=== PATIENT | female | born 1945 | race Caucasian/White ===

== ENCOUNTER 2023-09-08 12:22 | Inpatient (IN) | payer MEDICARE, OTHER, SELFPAY ==
[2023-09-08] VITALS (10 sets, daily range): BP systolic 111–130; BP diastolic 65–85; PULSE 72–85; RESP 18–20; TEMP 36.8–37.6; O2SAT 93–98; BMI 32.2
--- NOTE | 2023-09-08 12:37 | XRR_ITS ---
PROCEDURE INFORMATION: Exam: XR Chest Exam date and time: 09/08/2023 12:45 PM Age: 78 years old Clinical indication: Cough and dyspnea; Additional info: Weakness TECHNIQUE: Imaging protocol: Radiologic exam of the chest. Views: 1 view. COMPARISON: No relevant prior studies available. FINDINGS: Tubes, catheters and devices: Left-sided pacemaker noted. Loop recorder pattern density overlying left lower chest/upper abdomen noted medially. Lungs: Unremarkable. No consolidation. Pleural spaces: Unremarkable. No pleural effusion. No pneumothorax. Heart/Mediastinum: Cardiomegaly noted. Bones/joints: Unremarkable. XR/XR chest 1V portable [id number] IMPRESSION: No acute findings. Cardiomegaly noted.
--- NOTE | 2023-09-08 12:49 | W.ED.COVID ---
HPI - COVID General: Chief Complaint: COVID symptoms Stated Complaint: WEAKNESS; COVID + Time Seen by Provider: 09/08/23 12:35 Source: patient and EMS Mode of arrival: EMS Limitations: no limitations History of Present Illness: 78-year-old female states that she tested positive for COVID on the first she states that she has had cough congestion increasing shortness of breath especially today. States today she felt very weak and short of breath EMS states her pulse ox was in the 80s to have her on 2 L she does not wear oxygen at home no known fevers COVID 19 common symptoms: positive non-productive cough, dyspnea, fatigue and throat pain; negative fever(s), chills, body aches, headache(s), nausea, vomiting or diarrhea COVID 19 other sytmptoms: negative chest pain COVID Results: No Data to Display Review of Systems Const: Reports: fatigue and malaise; Denies: fever(s), chills or body aches ENMT: Reports: throat pain; Denies: dental pain Card: Denies: chest pain Resp: Reports: dyspnea and non-productive cough GI: Denies: abdominal pain, nausea, vomiting or diarrhea Musc: Denies: neck pain or back pain Skin/Breast: Denies: rash Neuro: Denies: headache(s) Physical Exam Const: COMMON NORMALS: patient oriented x3 GENERAL APPEARANCE: ill appearing HENMT: COMMON NORMALS: normocephalic and atraumatic HEAD & SCALP: normocephalic and atraumatic Eye: COMMON NORMALS: Equal, round and reactive pupils present and EOMs intact bilaterally PUPIL: Yes Equal, round and reactive pupils present Neck/C-Spine: COMMON NORMALS: full ROM and supple Chest: COMMONS NORMALS: normal inspection of the chest and normal palpation of entire chest wall Resp: COMMON NORMALS: normal respiratory effort, No retractions, No use of accessory muscles and clear to auscultation bilaterally AUSCULTATION: clear to auscultation bilaterally Cardio: COMMON NORMALS: regular rate, regular rhythm and No murmurs present (Cardio) RATE: regular rate RHYTHM: regular rhythm GI: COMMON NORMALS: Normal to inspection, nondistended, normoactive bowel sounds present, Soft to palpation, non-tender and no masses PALPATION: Yes Soft to palpation Extremity: COMMON NORMALS: normal to inspection and full ROM Neuro: COMMON NORMALS: patient oriented x3, moves all extremities and no focal motor deficits Psych: COMMON NORMALS: mental status grossly normal, Normal thought process present and cooperative THOUGHT PROCESS: Normal thought process present Skin: COMMON NORMALS: no rashes or lesions noted and no wounds GENERAL SKIN EXAM: no rashes or lesions noted Course Vital Signs: Vital signs: Vital Signs Temperature 99.6 F 09/08/23 12:32 Pulse Rate 85 09/08/23 13:30 Respiratory Rate 20 H 09/08/23 13:30 Blood Pressure 116/75 09/08/23 13:30 Pulse Oximetry 96 09/08/23 13:30 Oxygen Delivery Me thod Room Air 09/08/23 13:30 Oxygen Flow Rate 1 09/08/23 13:09 MDM - COVID Medical Decision Making Patient presents here with generalized weakness she is COVID-positive having some mild hypoxia as well. Spoke to the hospitalist will admit for observation. Medical Records I reviewed the patient's medical records. Lab Data I reviewed the patient's lab results. 09/08/23 13:10 09/08/23 13:10 Radiology Impressions Chest X-Ray 09/08/23 12:37 IMPRESSION: No acute findings. Cardiomegaly noted. Laboratory Results WBC 6.52 10^3/uL (3.29-11.43) 09/08/23 13:10 RBC 4.13 10^6/uL (3.85-5.65) 09/08/23 13:10 Hgb 11.40 g/dL (11.27-16.99) 09/08/23 13:10 Hct 33.2 % (36-47) L 09/08/23 13:10 MCV 80.4 fl (85-98) L 09/08/23 13:10 MCH 27.6 pg (27-33) 09/08/23 13:10 MCHC 34.3 g/dL (30-55) 09/08/23 13:10 RDW 13.7 % (12.1-15.1) 09/08/23 13:10 Plt Count 131 10^3/cmm (157-399) L 09/08/23 13:10 MPV 9.0 fL (7.4-10.4) 09/08/23 13:10 Neut % (Auto) 75.7 % 09/08/23 13:10 Lymph % (Auto) 12.7 % 09/08/23 13:10 [place] % (Auto) 11.2 % 09/08/23 13:10 Eos % (Auto) 0.2 % 09/08/23 13:10 Baso % (Auto) 0.0 % 09/08/23 13:10 Neut # (Auto) 4.94 10^3/uL (1.8-7.7) 09/08/23 13:10 Lymph # (Auto) 0.8 10^3/uL (0.8-4.8) 09/08/23 13:10 [place] # (Auto) 0.7 10^3/uL (0.2-0.9) 09/08/23 13:10 Eos # (Auto) 0.0 10^3/uL (0.0-0.8) 09/08/23 13:10 Baso # (Auto) 0.0 10^3/uL (0.0-0.1) 09/08/23 13:10 Nucleated RBC % (auto) 0 % 09/08/23 13:10 Nucleated RBCs # 0.0 /100WBC 09/08/23 13:10 Sodium 129 mmol/L (136-145) L 09/08/23 13:10 Potassium 3.3 mmol/L (3.5-5.1) L 09/08/23 13:10 Chloride 92 mmol/L (98-107) L 09/08/23 13:10 Carbon Dioxide 20 mmol/L (22-29) L 09/08/23 13:10 Anion Gap 20.3 (5-19) H 09/08/23 13:10 BUN 16 mg/dL (8-23) 09/08/23 13:10 Creatinine 1.1 mg/dL (0.5-0.9) H 09/08/23 13:10 GFR Calculation Not Reportable 09/08/23 13:10 Glucose 114 mg/dL (65-115) 09/08/23 13:10 Calculated Osmolality 270 mOsm/kg (285-295) L 09/08/23 13:10 Calcium 8.5 mg/dL (8.5-10.5) 09/08/23 13:10 Total Bilirubin 0.6 mg/dL (0.15-1.2) 09/08/23 13:10 AST 40 U/L (0-32) H 09/08/23 13:10 ALT 30 U/L (0-33) 09/08/23 13:10 Alkaline Phosphatase 77 U/L (35-105) 09/08/23 13:10 Total Protein 7.2 g/dL (6.6-8.7) 09/08/23 13:10 Albumin 4.1 g/dL (3.5-5.2) 09/08/23 13:10 Globulin 3.1 g/dL (1.3-4.6) 09/08/23 13:10 Urine Color Yellow (Yellow) 09/08/23 13:30 Urine Appearance Clear (CLEAR) 09/08/23 13:30 Urine pH 5 (5-7) 09/08/23 13:30 Ur Specific [place] 1.015 (1.005-1.030) 09/08/23 13:30 Urine Protein 1+ (Negative) H 09/08/23 13:30 Urine Glucose (UA) Norm (Normal) 09/08/23 13:30 Urine Ketones 1+ (Negative) H 09/08/23 13:30 Urine Blood 2+ (Negative) H 09/08/23 13:30 Urine Nitrate Negative (Negative) 09/08/23 13:30 Urine Bilirubin Neg (Negative) 09/08/23 13:30 Urine Urobilinogen Norm mg/dL (Negative) 09/08/23 13:30 Ur Leukocyte Esterase Negative (Negative) 09/08/23 13:30 Urine RBC 0-4 /hpf (0-2) H 09/08/23 13:30 Urine WBC None /hpf (0-5) 09/08/23 13:30 Ur Squamous Epith Cells None /hpf (0-5) 09/08/23 13:30 Amorphous Sediment Not Reportable 09/08/23 13:30 Urine Bacteria Trace /hpf (NONE) 09/08/23 13:30 No Data to Display All radiology interpretation(s) finalized by discharge Discharge Plan Discharge Patient Disposition: Admitted As Inpatient Clinical Impression: COVID-19, Generalized weakness Condition: Stable Referrals: Nikolai Garcia MD [Family Provider] - Coding Level of Care Code ED Senior Marketing Specialist for [facility] Janice
[2023-09-08] MEDS: dexamethasone 10 mg/mL INJ IVP (13:04)
[2023-09-08 13:16] LABS: Eosinophils % 0.2 %; Hematocrit 33.2 % (36-47); Lymphocytes # 0.8 10^3/uL (0.8-4.8); Lymphocytes % 12.7 %; Mean Corpuscular HGB Conc 34.3 g/dL (30-55); Mean Corpuscular Hemoglobin 27.6 pg (27-33); Mean Corpuscular Volume 80.4 fl (85-98); Monocytes # 0.7 10^3/uL (0.2-0.9); Monocytes % 11.2 %; Neutrophils # 4.94 10^3/uL (1.8-7.7); Neutrophils % 75.7 %; Nucleated Red Blood Cells % 0 %; Platelet Count 131 10^3/cmm (157-399); Red Blood Count 4.13 10^6/uL (3.85-5.65); Red Cell Distribution Width 13.7 % (12.1-15.1); White Blood Count 6.52 10^3/uL (3.29-11.43)
[2023-09-08 13:37] LABS: Alanine Aminotransferase 30 U/L (0-33); Albumin Level 4.1 g/dL (3.5-5.2); Alkaline Phosphatase 77 U/L (35-105); Anion Gap 20.3 (5-19); Aspartate Amino Transferase 40 U/L (0-32); Blood Urea Nitrogen 16 mg/dL (8-23); Calcium 8.5 mg/dL (8.5-10.5); Carbon Dioxide 20 mmol/L (22-29); Chloride 92 mmol/L (98-107); Globulin 3.1 g/dL (1.3-4.6); Glucose 114 mg/dL (65-115); Osmolality Calculated 270 mOsm/kg (285-295); Potassium 3.3 mmol/L (3.5-5.1); Sodium 129 mmol/L (136-145); Total Bilirubin 0.6 mg/dL (0.15-1.2); Total Protein 7.2 g/dL (6.6-8.7)
[2023-09-08 13:38] LABS: Creatinine Clr Calc Pharmacy 43.5848
[2023-09-08] MEDS: acetaminophen 500 mg Tablet 1000 MG PO (13:44)
[2023-09-08 13:58] LABS: Protein Urine 1+ (Negative); Specific Gravity, Urine 1.015 (1.005-1.030); Urine Appearance Clear (CLEAR); Urine Color Yellow (Yellow); pH Urine 5 (5-7)
[2023-09-08 13:59] LABS: Add Urine Culture? No; Add Urine Microscopic? YES; Bacteria Urine TRACE /hpf; Bilirubin Urine Neg (Negative); Blood Urine 2+ (Negative); Glucose Urine UA Norm (Normal); Ketones Urine 1+ (Negative); Leukocyte Esterase Urine Negative (Negative); Nitrate Urine Negative (Negative); RBC Urine 0-4 /hpf (0-2); Urobilinogen Urine Norm (Negative)
--- NOTE | 2023-09-08 14:08 | P.HP_ITS ---
Providers/Chief Complaint 2 Chief Complaint: WEAKNESS; COVID + History of Present Illness Carol Perry is a 78 year old female who carries history of cardiomyopathy status post pacemaker AICD, presented with chief complaint of worsening of shortness of breath diarrhea and lethargy. Patient tested positive for COVID on first of this month, her daughter is sick with COVID-19. Her symptoms started roughly 3 days ago, she has not noticed any fever. She is endorsing diarrhea. No active chest pain. She has noted sore throat and change of her voice. Review of Systems 2 Const: Reports: chills, fatigue and malaise Eyes: Denies: change in vision ENMT: Denies: throat pain Card: Denies: chest pain Resp: Reports: dyspnea GI: Reports: nausea and diarrhea : Denies: flank pain Musc: Denies: neck pain Medications/Allergies Home Medications Medication Instructions Recorded Confirmed Last Taken Type amlodipine 10 mg tablet 10 mg PO DAILY 09/08/23 09/08/23 Unknown History apixaban 5 mg tablet (Eliquis) 5 mg PO BID 09/08/23 09/08/23 Unknown History cholecalciferol (vitamin D3) 125 125 mcg PO QAM 09/08/23 09/08/23 Unknown History mcg (5,000 unit) tablet (Vitamin D3) coenzyme Q10 100 mg capsule 100 mg PO QAM 09/08/23 09/08/23 Unknown History (CoQ-10) duloxetine 60 mg capsule,delayed 60 mg PO QAM 09/08/23 09/08/23 Unknown History release (Cymbalta) esomeprazole magnesium 40 mg 40 mg PO QAM 09/08/23 09/08/23 Unknown History capsule,delayed release (Nexium) furosemide 20 mg tablet (Lasix) 20 mg PO QAM 09/08/23 09/08/23 Unknown History linaclotide 72 mcg capsule 72 mcg PO QAM 09/08/23 09/08/23 Unknown History losartan 50 mg tablet 50 mg PO BID 09/08/23 09/08/23 Unknown History nirmatrelvir 300 mg (150 mg See Rx Instructions .Route .COMPLEX 09/08/23 09/08/23 Unknown History x2)-ritonavir 100 mg tablet,dose pack (Paxlovid) omega-3 acid ethyl esters 1 gram 2 cap PO BID 09/08/23 09/08/23 Unknown History capsule potassium chloride 10 mEq 10 meq PO QAM 09/08/23 09/08/23 Unknown History tablet,extended release ropinirole 0.5 mg tablet 0.5 mg PO QPM 09/08/23 09/08/23 Unknown History rosuvastatin 20 mg tablet (Crestor) 20 mg PO QPM 09/08/23 09/08/23 Unknown History sotalol 80 mg tablet 80 mg PO BID 09/08/23 09/08/23 Unknown History vitamin B complex 1 tab PO QAM 09/08/23 09/08/23 Unknown History Allergies Allergy/AdvReac Type Severity Reaction Status Date / Time No Known Allergies Allergy Verified 09/08/23 12:39 PFSH Acute 2 PFSH: Medical History Pacemaker Cardiomyopathy Surgical History Presence of biventricular AICD Vitals/I&O/Wt Last Vital Signs Temp 99.6 F 09/08/23 12:32 Pulse 85 09/08/23 13:30 Resp 20 H 09/08/23 13:30 BP 116/75 09/08/23 13:30 Pulse Ox 94 09/08/23 14:00 O2 Del Method Room Air 09/08/23 14:00 O2 Flow Rate 1 09/08/23 13:09 Weight last 48 hrs Weight 82.554 kg Physical Exam 2 Narrative: Pleasant cooperative Currently on room air Hoarseness of voice GCS 15 Bilateral breath sounds with mild rhonchi Abdomen soft No severe signs of fluid overload Pleasant cooperative Nonfocal neuroexam Appears stated age Pleasant cooperative Data 09/08/23 13:10 09/08/23 13:10 A&P Assessment and plan (1) Dehydration: (2) ANDREW (acute kidney injury): (3) Hyponatremia: (4) COVID-19: (5) Generalized weakness: (6) Hypokalemia: Plan Generalized weakness lethargy and fatigue related to COVID-19 Judicious use of fluids Patient carries history of cardiomyopathy status post AICD and pacemaker I will continue diuretics with potassium supplementation Hold off on IV fluids Patient not requiring oxygen However I will give her remdesivir and Decadron Will give her antibiotics as well to prevent post viral bacterial infection Hypokalemia: Replenish potassium Check mag level TSH B12 History of A-fib continue Eliquis along sotalol Full code Cardiac diet Attestations 2 Medical Necessity Statement*: More than 2 midnights anticipated Diagnoses Dehydration E86.0 ANDREW (acute kidney injury) N17.9 Hyponatremia E87.1 COVID-19 U07.1 Generalized weakness R53.1 Hypokalemia E87.6
--- NOTE | 2023-09-08 14:27 | PC.PHAR ---
pts daughter states she takes care of the pts medications-tia [phone] pts daughter states she sent the pts medications with the pt states they are in 3 bags states thats all the medications the pt takes-medications entered are from the pts medication bottles that were brought in -
[2023-09-08 14:32] LABS: D Dimer 0.58 ug/mLFEU (0-0.59)
[2023-09-08 14:33] LABS: NT Pro B Type Natriuretic Pept 2112 pg/mL (0-450)
[2023-09-08 14:53] LABS: Procalcitonin 0.09 ng/mL (0-0.5)
[2023-09-08 17:46] LABS: Glucose Point of Care 155 mg/dL (70-110)
[2023-09-08] MEDS: apixaban 5 mg Tablet PO (17:48)
[2023-09-08] MEDS: enoxaparin 40 mg/0.4 mL Syringe SUBCUT (17:48)
[2023-09-08] MEDS: sotalol 80 mg Tablet PO (17:48)
[2023-09-08] MEDS: ropinirole 0.25 mg Tablet 0.5 MG PO (17:48)
[2023-09-08] MEDS: sodium chloride 0.9% 1,000 ML 75 ML IV (17:49)
[2023-09-08 18:49] LABS: Thyroid Stimulating Hormone 0.82 uIU/mL (0.27-4.20); Vitamin B12 1399 pg/mL (232-1245)
[2023-09-08 19:51] LABS: Estmated Average Glucose 114; Hemoglobin A1C 5.6 % (4.0-6.0)
[2023-09-08 20:43] LABS: Glucose Point of Care 334 mg/dL (70-110)
[2023-09-09] VITALS (7 sets, daily range): BP systolic 103–118; BP diastolic 61–71; PULSE 68–81; RESP 16–18; TEMP 36.5–36.8; O2SAT 93–98
[2023-09-09 06:10] LABS: Hematocrit 32.6 % (36-47); Lymphocytes # 0.7 10^3/uL (0.8-4.8); Lymphocytes % 13.9 %; Mean Corpuscular HGB Conc 33.7 g/dL (30-55); Mean Corpuscular Hemoglobin 27.2 pg (27-33); Mean Corpuscular Volume 80.5 fl (85-98); Monocytes # 0.4 10^3/uL (0.2-0.9); Monocytes % 8.6 %; Neutrophils # 3.95 10^3/uL (1.8-7.7); Neutrophils % 77.3 %; Nucleated Red Blood Cells % 0 %; Platelet Count 137 10^3/cmm (157-399); Red Blood Count 4.05 10^6/uL (3.85-5.65); Red Cell Distribution Width 13.5 % (12.1-15.1); White Blood Count 5.11 10^3/uL (3.29-11.43)
[2023-09-09] MEDS: duloxetine 60 mg Capsule PO (06:14)
[2023-09-09] MEDS: FUROsemide 20 mg Tablet PO (06:14)
[2023-09-09 06:20] LABS: Glucose Point of Care 185 mg/dL (70-110)
[2023-09-09 06:35] LABS: Anion Gap 14.1 (5-19); Blood Urea Nitrogen 17 mg/dL (8-23); C Reactive Protein 60.3 mg/L (0.0-4.9); Calcium 8.2 mg/dL (8.5-10.5); Carbon Dioxide 20 mmol/L (22-29); Chloride 96 mmol/L (98-107); Creatinine Clr Calc Pharmacy 59.4569; Glucose 186 mg/dL (65-115); Magnesium 1.6 mg/dL (1.7-2.3); Osmolality Calculated 270 mOsm/kg (285-295); Phosphorus 2.2 mg/dL (2.5-4.5); Potassium 3.1 mmol/L (3.5-5.1); Sodium 127 mmol/L (136-145)
[2023-09-09] MEDS: cefTRIAXone 1,000 MG in sodium chloride 0.9% (plus) 50 ML 100 MG IV (10:22)
[2023-09-09] MEDS: sotalol 80 mg Tablet PO ×2 (10:23→17:32)
[2023-09-09] MEDS: potassium chloride ER 20 mEq Tablet 40 MEQ PO (10:23)
[2023-09-09] MEDS: pantoprazole DR 40 mg Tablet PO (10:23)
[2023-09-09] MEDS: dexamethasone 4 mg Tablet 6 MG PO (10:23)
[2023-09-09] MEDS: apixaban 5 mg Tablet PO ×2 (10:23→17:32)
[2023-09-09] MEDS: insulin lispro 100 unit/1 mL SUBCUT ×3 (10:24→17:32)
[2023-09-09 11:21] LABS: Glucose Point of Care 205 mg/dL (70-110)
[2023-09-09] MEDS: magnesium sulfate premix 1 GM/100 ML PIGGYBACK IV (11:22)
--- NOTE | 2023-09-09 12:06 | P.PN_ITS ---
Subjective 2 Subjective: Sodium 127 Potassium 3.1 Phosphorus is low as well 2.2 Magnesium 1.6 I have replenished electrolytes via IV today Patient is afebrile not requiring oxygen Still endorsing feeling fatigued and lethargic Endorsing muscle cramps Calcium is 8.2, albumin is normal Normal B12 Vitals/I&O/Wt Last Vital Signs Temp 98.3 F 09/09/23 11:27 Pulse 72 09/09/23 11:27 Resp 16 09/09/23 11:27 BP 117/61 09/09/23 11:27 Pulse Ox 95 09/09/23 11:27 O2 Del Method Room Air 09/09/23 11:27 O2 Flow Rate 1 09/08/23 13:09 09/08/23 09/09/23 09/09/23 22:59 06:59 14:59 Intake Total 240 / 240 1120 / 1360 390 / 390 Output Total 400 / 400 Balance 240 / 240 720 / 960 390 / 390 Weight last 48 hrs Weight 81.284 kg Weight 82.554 kg Weight 82.554 kg Physical Exam 2 Narrative: Awake and alert Dehydrated GCS 15 Pleasant cooperative Muscle cramps Nonfocal neuroexam Currently doing well on room air S1, S2 Data 09/09/23 05:46 09/09/23 05:46 Micro: Microbiology 09/08/23 15:36 Blood Culture - Preliminary Blood SPECIMEN COLLECTED 09/08/23 15:36 Blood Culture - Preliminary Blood SPECIMEN COLLECTED A&P Assessment and plan (1) Hyponatremia: (2) ANDREW (acute kidney injury): (3) Dehydration: (4) Hypokalemia: (5) COVID-19: (6) Generalized weakness: (7) Hypophosphatemia: (8) Hypomagnesemia: Plan Severe electrolyte imbalance Replenish potassium phosphorus magnesium with IV Mild COVID Not requiring oxygen, afebrile, will give her Decadron only History of congestive heart failure without significant exacerbation Clinical signs of dehydration IV fluids given yesterday Hold off on Lasix Not requiring oxygen Hopefully will be able to discharge her by tomorrow She is getting Eliquis which is her home medication Continue ceftriaxone empirical coverage A-fib without RVR Disposition: Home most likely by tomorrow Attestations 2 Medical Necessity Statement*: Plan to discharge her tomorrow Diagnoses Hyponatremia E87.1 ANDREW (acute kidney injury) N17.9 Dehydration E86.0 Hypokalemia E87.6 COVID-19 U07.1 Generalized weakness R53.1 Hypophosphatemia E83.39 Hypomagnesemia E83.42
[2023-09-09] MEDS: acetaminophen 500 mg Tablet PO (13:03)
[2023-09-09] MEDS: potassium phosphate (mEq K) 40 MEQ in sodium chloride 0.9% (100 ml) 100 ML 27.2699999999999996 MEQ IV (13:04)
[2023-09-09 16:47] LABS: Glucose Point of Care 199 mg/dL (70-110)
[2023-09-09] MEDS: ropinirole 0.25 mg Tablet 0.5 MG PO (17:32)
[2023-09-09] MEDS: enoxaparin 40 mg/0.4 mL Syringe SUBCUT (17:32)
[2023-09-09 20:59] LABS: Glucose Point of Care 180 mg/dL (70-110)
[2023-09-10 00:36] VITALS: BP 104/61; PULSE 78; RESP 18; TEMP 36.6; O2SAT 95
[2023-09-10 04:08] VITALS: BP 117/68; PULSE 73; RESP 18; TEMP 36.3; O2SAT 98
[2023-09-10 05:16] LABS: Basophils % 0.1 %; Hematocrit 32.5 % (36-47); Lymphocytes # 0.8 10^3/uL (0.8-4.8); Lymphocytes % 7.5 %; Mean Corpuscular HGB Conc 33.5 g/dL (30-55); Mean Corpuscular Hemoglobin 27.3 pg (27-33); Mean Corpuscular Volume 81.3 fl (85-98); Mean Platelet Volume 9.1 fL (7.4-10.4); Monocytes # 0.4 10^3/uL (0.2-0.9); Monocytes % 3.7 %; Neutrophils # 9.74 10^3/uL (1.8-7.7); Neutrophils % 88.2 %; Nucleated Red Blood Cells % 0 %; Platelet Count 151 10^3/cmm (157-399); White Blood Count 11.04 10^3/uL (3.29-11.43)
[2023-09-10] MEDS: duloxetine 60 mg Capsule PO (05:34)
[2023-09-10 05:45] LABS: Anion Gap 19.4 (5-19); Blood Urea Nitrogen 21 mg/dL (8-23); Calcium 8.4 mg/dL (8.5-10.5); Carbon Dioxide 19 mmol/L (22-29); Chloride 99 mmol/L (98-107); Creatinine Clr Calc Pharmacy 52.8505; Glucose 172 mg/dL (65-115); Magnesium 1.9 mg/dL (1.7-2.3); Osmolality Calculated 285 mOsm/kg (285-295); Phosphorus 3.4 mg/dL (2.5-4.5); Potassium 3.4 mmol/L (3.5-5.1); Sodium 134 mmol/L (136-145)
--- NOTE | 2023-09-10 06:00 | USCV_ITS ---
Carol Perry Age: 78 Gender: F : 1945 Exam Date: 09/10/2023 01:52 Ordering Phys: Joey Lopez MD Technologist: HAYES Exam Location: [facility] [place] Indication: COVID. No history of cardiac intervention per patient. BP: 108 / 63 HR: 71 Rhythm: Atrial fibrillation Technical Quality: Adequate MEASUREMENTS (Male / Female) Normal Values 2D ECHO LV Diastolic Diameter PLAX 4.7 cm 4.2 - 5.9 / 3.9 - 5.3 cm IVS Diastolic Thickness 1.1 cm 0.6 - 1.0 / 0.6 - 0.9 cm IVS Systolic Thickness 2.0 cm LVPW Diastolic Thickness 1.4 cm 0.6 - 1.0 / 0.6 - 0.9 cm LVPW Systolic Thickness 2.1 cm LVOT Diameter 1.4 cm LV Ejection Fraction 2D Teich 73.5 % LV Ejection Fraction MOD 2C 61.8 % LV Ejection Fraction 2C AL 0.0 % LA Diameter 4.9 cm Aorta at Sinotubular Diameter 2.4 cm IVC Diameter 2.0 cm M-MODE LA Ao Ratio MM 2.0 AV Cusp Separation MM 1.4 cm DOPPLER AV Peak Velocity 127.0 cm/s LVOT Peak Velocity 94.0 cm/s AV Area Cont Eq vti 1.3 cm squared AV Area Cont Eq pk 1.2 cm squared MV Peak Velocity 138.5 cm/s MV Area PHT 3.8 cm squared Mitral E to A Ratio 0.0 TV Peak Velocity 257.7 cm/s TR Peak Velocity 262.0 cm/s TR Peak Gradient 27.5 mmHg TV Peak E Velocity 71.0 cm/s Right Atrial Pressure 10.0 mmHg Pulmonary Artery Systolic Pressu 37.5 mmHg PV Peak Velocity 82.0 cm/s FINDINGS Left Ventricle Normal left ventricular size and systolic function, EF 62%no regional wall motion abnormalities. Right Ventricle The right ventricle is normal in size and function. Right Atrium Mildly increased right atrial size. Left Atrium Moderately increased left atrial size. Mitral Valve Mild mitral annular calcification. Moderate mitral valve regurgitation. Aortic Valve No gross abnormalities noted Tricuspid Valve Moderate tricuspid valve regurgitation. Estimated pulmonary artery peak systolic pressure 37 mmHg Pulmonic Valve Trace pulmonary valve regurgitation. Pericardium No pericardial effusion. Aorta Normal aortic annulus size. IVC The inferior vena cava appears normal. CONCLUSIONS Normal left ventricular size and systolic function, EF 62%no regional wall motion abnormalities. 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 Mild mitral annular calcification. Moderate mitral valve regurgitation. Moderate tricuspid valve regurgitation. Estimated pulmonary artery peak systolic pressure 37 mmHg. Trace pulmonary valve regurgitation. No similar previous studies are available for comparison Dr Raghu Bentley MD [facility] (Electronically Signed) Final Date: 10 September 2023 13:29 S
[2023-09-10 06:22] LABS: Glucose Point of Care 184 mg/dL (70-110)
[2023-09-10 08:00] VITALS: BP 98/60; PULSE 88; RESP 16; TEMP 36.7; O2SAT 97
--- NOTE | 2023-09-10 10:44 | PM.DCS ---
Discharge Providers Date of Admission: 09/08/23 14:08 Date of Discharge: September 10, 2023 Attending Provider at Admission: Joey Lopez MD Attending Provider at Discharge: Joey Lopez MD Diagnoses at Discharge Discharge Diagnosis (1) Hyponatremia: Status: Acute (2) ANDREW (acute kidney injury): Status: Acute (3) Dehydration: Status: Acute (4) Hypokalemia: Status: Acute (5) COVID-19: Status: Acute (6) Generalized weakness: Status: Acute (7) Hypophosphatemia: Status: Acute (8) Hypomagnesemia: Status: Acute Reason for Visit Reason for Visit: WEAKNESS; COVID + Hospital Course Hospital Course 78-year female who was admitted for management evaluation of severe electrolyte imbalance, generalized weakness and fatigue she was not able to get up walk around on her own, she remained afebrile, did not require oxygen despite testing positive for COVID, her diarrhea improved during hospitalization, she was given gentle fluid hydration otherwise she was given Lasix for her congestive heart failure symptoms, she may resume her Eliquis and sotalol at the time of discharge, she did not qualify for oxygen, Physical Exam Narrative: GCS 15 nonfocal neuroexam Awake and alert Currently on room air S1, S2 variable Euvolemic Diarrhea stop Discharge Data Studies Completed and Pending Completed Studies During Hospitalization Category Date Time Status XR chest 1V portable [id number] Stat Exams 09/08/23 12:37 Completed Pending at discharge Category Date Time Status Blood Culture Stat Lab 09/08/23 15:36 Results CV. echo complete* [id number] Routine Ultrasound 09/10/23 06:00 Taken Radiology Impressions Chest X-Ray 09/08/23 12:37 IMPRESSION: No acute findings. Cardiomegaly noted. Laboratory Results WBC 11.04 10^3/uL (3.29-11.43) 09/10/23 04:40 RBC 4.00 10^6/uL (3.85-5.65) 09/10/23 04:40 Hgb 10.90 g/dL (11.27-16.99) L 09/10/23 04:40 Hct 32.5 % (36-47) L 09/10/23 04:40 MCV 81.3 fl (85-98) L 09/10/23 04:40 MCH 27.3 pg (27-33) 09/10/23 04:40 MCHC 33.5 g/dL (30-55) 09/10/23 04:40 RDW 14.0 % (12.1-15.1) 09/10/23 04:40 Plt Count 151 10^3/cmm (157-399) L 09/10/23 04:40 MPV 9.1 fL (7.4-10.4) 09/10/23 04:40 Neut % (Auto) 88.2 % 09/10/23 04:40 Lymph % (Auto) 7.5 % 09/10/23 04:40 [place] % (Auto) 3.7 % 09/10/23 04:40 Eos % (Auto) 0.0 % 09/10/23 04:40 Baso % (Auto) 0.1 % 09/10/23 04:40 Neut # (Auto) 9.74 10^3/uL (1.8-7.7) H 09/10/23 04:40 Lymph # (Auto) 0.8 10^3/uL (0.8-4.8) 09/10/23 04:40 [place] # (Auto) 0.4 10^3/uL (0.2-0.9) 09/10/23 04:40 Eos # (Auto) 0.0 10^3/uL (0.0-0.8) 09/10/23 04:40 Baso # (Auto) 0.0 10^3/uL (0.0-0.1) 09/10/23 04:40 Nucleated RBC % (auto) 0 % 09/10/23 04:40 Nucleated RBCs # 0.0 /100WBC 09/10/23 04:40 D-Dimer 0.58 ug/mLFEU (0-0.59) 09/08/23 13:10 Sodium 134 mmol/L (136-145) L 09/10/23 04:40 Potassium 3.4 mmol/L (3.5-5.1) L 09/10/23 04:40 Chloride 99 mmol/L (98-107) 09/10/23 04:40 Carbon Dioxide 19 mmol/L (22-29) L 09/10/23 04:40 Anion Gap 19.4 (5-19) H 09/10/23 04:40 BUN 21 mg/dL (8-23) 09/10/23 04:40 Creatinine 0.9 mg/dL (0.5-0.9) 09/10/23 04:40 GFR Calculation Not Reportable 09/10/23 04:40 Glucose 172 mg/dL (65-115) H 09/10/23 04:40 POC Glucose 184 mg/dL (70-110) H 09/10/23 06:19 Estimat Average Glucose 114 09/08/23 13:10 Hemoglobin A1c 5.6 % (4.0-6.0) 09/08/23 13:10 Calculated Osmolality 285 mOsm/kg (285-295) 09/10/23 04:40 Calcium 8.4 mg/dL (8.5-10.5) L 09/10/23 04:40 Phosphorus 3.4 mg/dL (2.5-4.5) D 09/10/23 04:40 Magnesium 1.9 mg/dL (1.7-2.3) 09/10/23 04:40 Total Bilirubin 0.6 mg/dL (0.15-1.2) 09/08/23 13:10 AST 40 U/L (0-32) H 09/08/23 13:10 ALT 30 U/L (0-33) 09/08/23 13:10 Alkaline Phosphatase 77 U/L (35-105) 09/08/23 13:10 C-Reactive Protein 60.3 mg/L (0.0-4.9) H 09/09/23 05:46 NT-Pro-B Natriuret Pep 2112 pg/mL (0-450) H 09/08/23 13:10 Total Protein 7.2 g/dL (6.6-8.7) 09/08/23 13:10 Albumin 4.1 g/dL (3.5-5.2) 09/08/23 13:10 Globulin 3.1 g/dL (1.3-4.6) 09/08/23 13:10 Vitamin B12 1399 pg/mL (232-1245) H 09/08/23 13:10 Procalcitonin 0.09 ng/mL (0-0.5) 09/08/23 13:10 TSH 0.82 uIU/mL (0.27-4.20) 09/08/23 13:10 Urine Color Yellow (Yellow) 09/08/23 13:30 Urine Appearance Clear (CLEAR) 09/08/23 13:30 Urine pH 5 (5-7) 09/08/23 13:30 Ur Specific [place] 1.015 (1.005-1.030) 09/08/23 13:30 Urine Protein 1+ (Negative) H 09/08/23 13:30 Urine Glucose (UA) Norm (Normal) 09/08/23 13:30 Urine Ketones 1+ (Negative) H 09/08/23 13:30 Urine Blood 2+ (Negative) H 09/08/23 13:30 Urine Nitrate Negative (Negative) 09/08/23 13:30 Urine Bilirubin Neg (Negative) 09/08/23 13:30 Urine Urobilinogen Norm mg/dL (Negative) 09/08/23 13:30 Ur Leukocyte Esterase Negative (Negative) 09/08/23 13:30 Urine RBC 0-4 /hpf (0-2) H 09/08/23 13:30 Urine WBC None /hpf (0-5) 09/08/23 13:30 Ur Squamous Epith Cells None /hpf (0-5) 09/08/23 13:30 Amorphous Sediment Not Reportable 09/08/23 13:30 Urine Bacteria Trace /hpf (NONE) 09/08/23 13:30 Vitals Last Vital Signs Temp 98.0 F 09/10/23 08:00 Pulse 88 09/10/23 08:00 Resp 16 09/10/23 08:00 BP 98/60 09/10/23 08:00 Pulse Ox 97 09/10/23 08:00 O2 Del Method Room Air 09/10/23 08:00 O2 Flow Rate 1 09/08/23 13:09 Discharge Plan Discharge Patient Disposition: Home Condition: Stable Prescriptions: New magnesium 200 mg tablet 200 mg PO DAILY Qty: 10 0RF Continued losartan 50 mg Tablet 50 mg PO BID sotalol 80 mg Tablet 80 mg PO BID potassium chloride 10 mEq Tablet Extended Release 10 meq PO QAM Nexium 40 mg Capsule,Delayed Release(Dr/Ec) 40 mg PO QAM ropinirole 0.5 mg Tablet 0.5 mg PO QPM Lasix 20 mg Tablet 20 mg PO QAM CoQ-10 100 mg Capsule 100 mg PO QAM Crestor 20 mg Tablet 20 mg PO QPM Cymbalta 60 mg Capsule,Delayed Release(Dr/Ec) 60 mg PO QAM Vitamin D3 125 mcg (5,000 unit) Tablet 125 mcg PO QAM Eliquis 5 mg tablet 5 mg PO BID Held linaclotide 72 mcg Capsule 72 mcg PO QAM Hold Instructions: Resume on 10/01/23. Discontinued amlodipine 10 mg Tablet 10 mg PO DAILY Super B Complex Tablet 1 tab PO QAM omega-3 acid ethyl esters 1 gram Capsule 2 cap PO BID Paxlovid 300 mg (150 mg x 2)-100 mg Tablets,Dose Pack See Rx Instructions .ROUTE .COMPLEX Rx Instructions: as directed (started 09/06/23) Discharge Orders: Discharge Order (Routine); Ordered 09/10/23 Ordered By: Joey Lopez Other Ambulatory Orders: DME: Clem (Order) Location: None Selected Ordered By: Joey MONTES: Clem (Order) Location: None Selected Ordered By: Joey Lopez Referrals: Nikolai Garcia MD [Family Provider] - Patient Instructions: Opioid Safety Discharge Attestations Time Spent in Discharge Care*: greater than 30 min Quality Metrics Clinical Quality Measures [ No reported AMI, CVA or VTE this stay] Coding Level of Care Code Acute Code for Chg Fwd Diagnoses Hyponatremia E87.1 ANDREW (acute kidney injury) N17.9 Dehydration E86.0 Hypokalemia E87.6 COVID-19 U07.1 Generalized weakness R53.1 Hypophosphatemia E83.39 Hypomagnesemia E83.42
[2023-09-10] MEDS: apixaban 5 mg Tablet PO (10:46)
[2023-09-10] MEDS: sotalol 80 mg Tablet PO (10:46)
[2023-09-10] MEDS: potassium chloride ER 20 mEq Tablet 40 MEQ PO (10:46)
[2023-09-10] MEDS: pantoprazole DR 40 mg Tablet PO (10:46)
[2023-09-10] MEDS: dexamethasone 4 mg Tablet 6 MG PO (10:46)
[2023-09-10] MEDS: acetaminophen 500 mg Tablet PO (10:47)
[2023-09-10] MEDS: cefTRIAXone 1,000 MG in sodium chloride 0.9% (plus) 50 ML 100 MG IV (10:48)
[2023-09-10 11:51] VITALS: BP 112/61; PULSE 68; RESP 16; TEMP 36.6; O2SAT 98
[2023-09-10 12:18] LABS: Glucose Point of Care 252 mg/dL (70-110)
[2023-09-10] MEDS: insulin lispro 100 unit/1 mL SUBCUT (12:21)
[2023-09-10 14:24] VITALS: BP 112/61; PULSE 68; RESP 16; TEMP 36.6; O2SAT 98
== END 2023-09-10 14:10 | disposition home or self-care (01) | DRG 178 ==
LOC: ER 14:07 → MEDSURG 17:14
PROVIDERS: Admitting Provider Internal Medicine; Emergency Provider Emergency Medicine; Family Provider Family Medicine; Visit Provider Internal Medicine
DX: U07.1 COVID-19 (principal); E87.1 Hypo-osmolality and hyponatremia; I48.20 Chronic atrial fibrillation, unspecified; I42.9 Cardiomyopathy, unspecified; E86.0 Dehydration; E87.6 Hypokalemia; E83.42 Hypomagnesemia; E83.39 Other disorders of phosphorus metabolism; Z79.01 Long term (current) use of anticoagulants; Z95.0 Presence of cardiac pacemaker; I50.9 Heart failure, unspecified
CPT/HCPCS: 36415; 36416; 71045; 80048; 80053; 81001; 82607; 82962; 83036; 83735; 83880; 84100; 84145; 84443; 85025; 85378; 86140; 87040; 93306; 94664; 96372; 96374; 97110; 97161; 97530; 99285; J0696; J1100; J1650; J1815; J3475; J7030; J8540